=== PATIENT | female | born 1945 | race Caucasian/White ===

== ENCOUNTER 2019-07-21 05:22 | Inpatient (IN) | payer MEDICARE ==
[2019-07-19 11:31] LABS: BASOPHILS % (AUTO) 0.4 % (0-1); EOSINOPHILS # (AUTO) 0.1 X10'3 (0-0.9); LYMPHOCYTES # (AUTO) 2.2 X10'3 (1.1-4.8); LYMPHOCYTES % (AUTO) 30.1 % (21-51); MEAN CORPUSCULAR HEMOGLOBIN 30.4 PG (27.0-31.0); MEAN CORPUSCULAR HGB CONC 33.1 g/dL (33.0-36.5); MEAN CORPUSCULAR VOLUME 91.7 FL (78-98); MEAN PLATELET VOLUME 7.2 FL (7.4-10.4); MONOCYTES # (AUTO) 0.5 X10'3 (0-0.9); MONOCYTES % (AUTO) 6.4 % (2-12); NEUTROPHILS # (AUTO) 4.4 X10'3 (1.8-7.7); NEUTROPHILS % (AUTO) 62.1 % (42-75); PRE OP HEMATOCRIT 42.4 % (35.0-45.0); PRE OP PLATELET COUNT 289 X10'3 (140-440); RED BLOOD COUNT 4.62 X10'6 (4.20-5.60)
[2019-07-19 11:38] LABS: CLARITY,URINE TURBID (Clear); COLOR,URINE YELLOW (Yellow); GLUCOSE, URINE NEGATIVE (Neg); KETONES,URINE TRACE mg/dl (Neg); LEUKOCYTE ESTERASE ,URINE MODERATE (Neg); NITRITES, URINE NEGATIVE (Neg); OCCULT BLOOD,URINE MODERATE (Neg); PH,URINE 5.5 (4.8-8.0); PROTEIN,URINE TRACE mg/dl (Neg); UA COLLECTION TYPE CLN CATCH MIDSTREAM; UROBILINOGEN,URINE 0.2 E.U/dL (0.2-1.0)
[2019-07-19 11:43] LABS: ALBUMIN 3.9 G/DL (3.4-5.0); ALBUMIN/GLOBULIN RATIO 0.9 (1.1-1.5); ALKALINE PHOSPHATASE 87 IU/L (46-116); BLOOD UREA NITROGEN 17 MG/DL (7-18); BUN/CREATININE RATIO 19.8 (6.6-38.0); CALCIUM 9.2 MG/DL (8.5-10.1); CHLORIDE 108 MMOL/L (99-107); CREATININE 0.86 MG/DL (0.40-0.90); PRE OP ALT 20 U/L (30-65); PRE OP ANION GAP 9 (8-16); PRE OP AST 18 U/L (10-37); PRE OP BILIRUB, TOTAL 0.4 MG/DL (0.0-1.0); PRE OP GLUCOSE 91 MG/DL (70-104); PRE OP POTASSIUM 4.1 MMOL/L (3.4-5.1); PRE OP SODIUM 144 MMOL/L (135-145); TOTAL CARBON DIOXIDE 27.2 MMOL/L (24-32); TOTAL PROTEIN 8.4 G/DL (6.4-8.2); eGFR 65 ML/MIN
[2019-07-19 11:48] LABS: BACTERIA,URINE 4+ /HPF (Neg); WBC,URINE 50-100 /HPF (0-4)
[2019-07-19 11:49] LABS: SQUAMOUS EPITHELIAL CELL,UR MODERATE /LPF (FEW); WBC CLUMPS,URINE FEW /HPF (NEGATIVE)
[2019-07-19 11:50] LABS: CAL OXALATE CRYSTALS FEW /HPF (NEGATIVE)
[~2019-07-21] VITALS: Ht 160 cm; Wt 72.0 kg
[2019-07-21] VITALS (17 sets, daily range): BP systolic 107–150; BP diastolic 52–92
[~2019-07-21 05:22] MED LIST: ASCO500C15 PO; MULT-955 PO
[2019-07-21] MEDS ORDERED: famotidine 20mg tablet PO ONE (05:30)
[2019-07-21] MEDS ORDERED: clindamycin-Cleocin 900mg/D5W 50 ML IV ONE (05:30)
[2019-07-21] MEDS ORDERED: gentamicin inj 300 MG in normal saline 100ml IV soln 92.5 ML IV ONE (05:30)
[2019-07-21] MEDS ORDERED: LIDOcaine 1% (10mg/ml) 2ml vial ONE (06:18)
[2019-07-21] MEDS: ringers solution, lacted 1,000 ML IV SCH (06:27)
[2019-07-21] MEDS ORDERED: BUPIVAcaine/PF 2.5 mg/ml (0.25%) 30ml vial ONE (06:53)
[2019-07-21] MEDS ORDERED: aprepitant 40mg capsule PO ONE (07:15)
[2019-07-21] MEDS ORDERED: sevoflurane 250ml liquid IH ONE (07:15)
[2019-07-21] MEDS ORDERED: propofol inj 20 ML IV ONE (07:22)
[2019-07-21] MEDS ORDERED: midazolam 2 mg/2 ml injection ONE (07:22)
[2019-07-21] MEDS ORDERED: rocuronium 10mg/ml inj IV ONE (07:22)
[2019-07-21] MEDS ORDERED: ondansetron/PF 4mg/2ml inj ONE (07:22)
[2019-07-21] MEDS ORDERED: fentaNYL /PF 50mcg/ml 5ml ampule ONE (07:22)
[2019-07-21] MEDS ORDERED: ketorolac trometh. 30mg/ml inj. ONE (07:22)
[2019-07-21] MEDS ORDERED: LIDOcaine 2% (20mg/ml) 5ml vial ONE (07:22)
[2019-07-21] MEDS ORDERED: dexamethasone sod phosphate 4mg/ml inj. ONE (07:22)
[2019-07-21] MEDS ORDERED: ringers solution, lacted 1,000 ML IV SCH (07:57)
[2019-07-21] MEDS ORDERED: morphine 4 MG/ML inj SYRINge IV PRN ×2 (08:00)
[2019-07-21] MEDS ORDERED: ondansetron/PF 4mg/2ml inj IV PRN ×2 (08:00→11:20)
[2019-07-21] MEDS ORDERED: meperidine/PF 25mg/ml syringe IV PRN ×3 (08:00)
[2019-07-21] MEDS ORDERED: proCHLORperazine 10 MG/2 ml inj IV PRN (08:00)
[2019-07-21] MEDS ORDERED: acetaminophen 1,000mg/100ml IV 100 ML IV ONE (10:22)
[2019-07-21] MEDS ORDERED: neostigmine methylsulfate 1 MG/ML 10ml vial ONE (10:44)
[2019-07-21] MEDS ORDERED: glycopyrrolate 0.2mg/ml inj ONE (10:45)
--- NOTE | 2019-07-21 10:50 | NUR ---
Received from OR via surgical bed, accompanied by Anesthesiologist TRIP and report given by Anesthesiolgist. Pt VS stable upon arrival, O2 mask at 10L and sats 100%. Pt responsive to verbal stimuli. Minimal drainage to small horizontal island dressing at lower abdomen, otherwise lap sites with bandaids CDI at this time. Patients states no pain. SCDs in place. 18G IV to right wrist with LR IVF at 100cc/hr. Will continue to monitor closely.
--- NOTE | 2019-07-21 11:39 | NUR ---
Report called to IDA Rosales on surgical floor.
--- NOTE | 2019-07-21 11:50 | NUR ---
Report called to receiving nurse. Transferred via surgical bed. Belongings on bed, at bedside. Special Issues communicated to receiving nurse. Triana catheter draining pink urine, education provided to patient and family re uretal stents. Pt VS remain stable. BLL, call light within reach, abdominal dressings remain CDI minimal drainage to lowest horizontal dressing. Receiving nurse at bedside.
[2019-07-21] MEDS: clindamycin 600mg/D5W 50ml 50 ML IV SCH ×2 (14:13→21:35)
[2019-07-21] MEDS: HYDROcodone/acetaminophen 10/325mg tab PO PRN ×2 (15:52→21:41)
--- NOTE | 2019-07-21 18:48 | NUR ---
Problems reprioritized. Patient report given, questions answered & plan of care reviewed with Prudence RN.
[2019-07-22] VITALS: BP 106/60
[2019-07-22] MEDS: clindamycin 600mg/D5W 50ml 50 ML IV SCH ×2 (03:31→07:16)
[2019-07-22] MEDS: ringers solution, lacted 1,000 ML IV SCH (03:37)
[2019-07-22] MEDS: HYDROcodone/acetaminophen 10/325mg tab PO PRN ×2 (05:48→20:32)
--- NOTE | 2019-07-22 06:25 | NUR ---
Problems reprioritized. Patient report given, questions answered & plan of care reviewed with Italo PRIETO.Patient is resting aand walked [address]
--- NOTE | 2019-07-22 06:30 | NUR ---
Patient in room [facility] 344. I have received report from Melani PRIETO and had the opportunity to ask questions and assume patient care.
[2019-07-22 07:00] VITALS: BP 94/53
--- NOTE | 2019-07-22 07:08 | NUR ---
Patient stated she had passed gas already, positive bowel sounds noted. There was order to advance diet as tolerated, ordered full liquid diet for this patient
[2019-07-22 11:00] VITALS: BP 99/51
[2019-07-22] MEDS ORDERED: ASCO500C15 PO (12:40)
--- NOTE | 2019-07-22 18:34 | NUR ---
Patient in room [facility] 344. I have received report from IDA Puckett and had the opportunity to ask questions and assume patient care.
--- NOTE | 2019-07-22 18:36 | NUR ---
Problems reprioritized. Patient report given, questions answered & plan of care reviewed with Donald PRIETO.
[2019-07-22 19:00] VITALS: BP 121/64
[2019-07-23] VITALS: BP 140/63
[2019-07-23] MEDS: HYDROcodone/acetaminophen 10/325mg tab PO PRN ×4 (00:42→09:38)
--- NOTE | 2019-07-23 06:38 | NUR ---
Problems reprioritized. Patient report given, questions answered & plan of care reviewed with IDA Cooley.
--- NOTE | 2019-07-23 06:42 | NUR ---
Patient in room [facility] 344. I have received report from Donald PRIETO and had the opportunity to ask questions and assume patient care. Patient resting eyes closed respirations even, will continue to monitor.
[2019-07-23 07:00] VITALS: BP 119/86
[2019-07-23] MEDS: multivitamins, therapeutics tablet PO SCH (09:26)
[2019-07-23] MEDS: ascorbic acid 500mg tablet PO SCH (09:26)
[2019-07-23 11:00] VITALS: BP 124/60
[2019-07-23] MEDS: HYDROcodone/acetaminophen 5mg/325mg tablet PO PRN (17:36)
--- NOTE | 2019-07-23 18:48 | NUR ---
Patient in room [facility] 344. I have received report from Edith PRIETO and had the opportunity to ask questions and assume patient care. patient is eating dinner with her in the room.
--- NOTE | 2019-07-23 18:53 | NUR ---
Problems reprioritized. Patient report given, questions answered & plan of care reviewed with Prudence RN.
[2019-07-23 19:00] VITALS: BP 139/74
[2019-07-24] VITALS: BP 127/62
[2019-07-24] MEDS: HYDROcodone/acetaminophen 5mg/325mg tablet PO PRN ×2 (02:10→08:24)
--- NOTE | 2019-07-24 06:40 | NUR ---
Patient in room [facility] 344. I have received report from Melani PRIETO and had the opportunity to ask questions and assume patient care.
[2019-07-24 07:00] VITALS: BP 136/74
[2019-07-24] MEDS: multivitamins, therapeutics tablet PO SCH (08:23)
[2019-07-24] MEDS: ascorbic acid 500mg tablet PO SCH (08:23)
[2019-07-24 12:15] VITALS: BP 135/57
[2019-07-24 13:08] LABS: BASOPHILS % (AUTO) 0.2 % (0-1); EOSINOPHILS # (AUTO) 0.2 X10'3 (0-0.9); EOSINOPHILS % (AUTO) 1.9 % (0-6); HEMATOCRIT 32.8 % (35.0-45.0); HEMOGLOBIN 11.1 g/dl (12.0-16.0); LYMPHOCYTES # (AUTO) 2.2 X10'3 (1.1-4.8); LYMPHOCYTES % (AUTO) 23.4 % (21-51); MEAN CORPUSCULAR HEMOGLOBIN 30.8 PG (27.0-31.0); MEAN CORPUSCULAR HGB CONC 33.8 g/dL (33.0-36.5); MEAN CORPUSCULAR VOLUME 90.9 FL (78-98); MEAN PLATELET VOLUME 7.5 FL (7.4-10.4); MONOCYTES # (AUTO) 0.6 X10'3 (0-0.9); NEUTROPHILS # (AUTO) 6.5 X10'3 (1.8-7.7); NEUTROPHILS % (AUTO) 68.5 % (42-75); PLATELET COUNT 231 X10'3 (140-440); RED CELL DISTRIBUTION WIDTH 14.7 % (11.5-14.5); WHITE BLOOD COUNT 9.6 X10'3 (4.5-11.0)
--- NOTE | 2019-07-24 17:06 | NUR ---
Pt discharged, pt is A&O, IV cath was removed- cath intact. Pt and spouse expressed understanding of all discharge instructions. Pt was also discharge from surgical with a folley catheter in place per Dr Mckeon orders. Pt will be going to Dr. Mckeon on Friday to DC her folley. Pt send home with a leg bag and was instructed on folley cath care. Pt verbalized understanding.
== END 2019-07-24 16:35 | disposition home or self-care (01) | DRG 330 ==
LOC: PAS IN 05:22 → EDSTATUS 07:30 → SUR 3N 11:19 → UNDODISIN 07-24 13:00
PROVIDERS: ADMIT Surgery; ATTEND Surgery
PROC: 0TB74ZZ Excision of Left Ureter, Percutaneous Endoscopic Approach (ICD-10-PCS; 2019-07-21)
PROC: 0TQ74ZZ Repair Left Ureter, Percutaneous Endoscopic Approach (ICD-10-PCS; 2019-07-21)
PROC: 0DBN4ZZ Excision of Sigmoid Colon, Percutaneous Endoscopic Approach (ICD-10-PCS; 2019-07-21)
PROC: 0TN74ZZ Release Left Ureter, Percutaneous Endoscopic Approach (ICD-10-PCS; 2019-07-21)
PROC: 0T9880Z Drainage of Bilateral Ureters with Drainage Device, Via Natural or Artificial Opening Endoscopic (ICD-10-PCS; 2019-07-21)
PROC: BT141ZZ Fluoroscopy of Kidneys, Ureters and Bladder using Low Osmolar Contrast (ICD-10-PCS; 2019-07-21)
PROC: 0T9B80Z Drainage of Bladder with Drainage Device, Via Natural or Artificial Opening Endoscopic (ICD-10-PCS; 2019-07-21)
PROC: 0T777DZ Dilation of Left Ureter with Intraluminal Device, Via Natural or Artificial Opening (ICD-10-PCS; 2019-07-21)
PROC: 0TQB4ZZ Repair Bladder, Percutaneous Endoscopic Approach (ICD-10-PCS; principal; 2019-07-21 07:15)
PROC: 0UQG4ZZ Repair Vagina, Percutaneous Endoscopic Approach (ICD-10-PCS; 2019-07-21 07:15)
DX: N82.3 Fistula of vagina to large intestine (principal); S37.10XA Unspecified injury of ureter, initial encounter; K57.30 Diverticulosis of large intestine without perforation or abscess without bleeding; X58.XXXA Exposure to other specified factors, initial encounter; Z88.0 Allergy status to penicillin; Z88.2 Allergy status to sulfonamides; Z90.710 Acquired absence of both cervix and uterus; Z98.49 Cataract extraction status, unspecified eye; Z82.5 Family history of asthma and other chronic lower respiratory diseases; Y93.89 Activity, other specified; Y92.89 Other specified places as the place of occurrence of the external cause; Y99.8 Other external cause status
CPT/HCPCS: 36415; 76000; 80053; 81001; 82948; 85025; 86885; 86900; 86901; 86920; 87081; 87088; 88307; 93005; A4215; A4355; A4618; A7000; C1758; C1769; C2617; G0378; J0131; J1100; J1580; J1885; J2001; J2250; J2405; J2704; J2710; J3010; J3490; J7120; J8501

== ENCOUNTER 2019-08-02 10:15 | Emergency (ER) | payer MEDICARE ==
[~2019-08-02] VITALS: Ht 160 cm; Wt 70.5 kg
[2019-08-02 10:38] VITALS: BP 144/89
[2019-08-02] MEDS ORDERED: dexamethasone sod phosphate 10mg/ml inj PO STA (11:33)
[2019-08-02] MEDS ORDERED: PRED20TA PO (11:35)
== END 2019-08-02 12:05 | disposition home or self-care (01) ==
LOC: ER 10:16
DX: L50.8 Other urticaria (principal); Z79.899 Other long term (current) drug therapy; Z88.0 Allergy status to penicillin; Z88.2 Allergy status to sulfonamides
CPT/HCPCS: 99283; J1100

== ENCOUNTER 2021-05-01 07:24 | Day surgery (SDC) | payer MEDICARE ==
[2021-04-25 12:05] LABS: BASOPHILS % (AUTO) 0.6 % (0-1); EOSINOPHILS # (AUTO) 0.1 X10'3 (0-0.9); EOSINOPHILS % (AUTO) 1.3 % (0-6); LYMPHOCYTES # (AUTO) 2.1 X10'3 (1.1-4.8); LYMPHOCYTES % (AUTO) 28.5 % (21-51); MEAN CORPUSCULAR HEMOGLOBIN 31.4 PG (27.0-31.0); MEAN CORPUSCULAR HGB CONC 33.4 g/dL (33.0-36.5); MEAN CORPUSCULAR VOLUME 94.1 FL (78-98); MEAN PLATELET VOLUME 7.4 FL (7.4-10.4); MONOCYTES # (AUTO) 0.4 X10'3 (0-0.9); MONOCYTES % (AUTO) 5.8 % (2-12); NEUTROPHILS # (AUTO) 4.8 X10'3 (1.8-7.7); NEUTROPHILS % (AUTO) 63.8 % (42-75); PRE OP HEMATOCRIT 43.2 % (35.0-45.0); PRE OP HEMOGLOBIN 14.4 g/dL (12.0-16.0); PRE OP PLATELET COUNT 291 X10'3 (140-440); RED BLOOD COUNT 4.59 X10'6 (4.20-5.60); RED CELL DISTRIBUTION WIDTH 13.3 % (11.5-14.5)
[2021-04-25 12:24] LABS: ALBUMIN 4.3 G/DL (3.4-5.0); ALBUMIN/GLOBULIN RATIO 1.1 (1.1-1.5); ALKALINE PHOSPHATASE 100 IU/L (46-116); BLOOD UREA NITROGEN 26 MG/DL (7-18); BUN/CREATININE RATIO 26.5 (6.6-38.0); CHLORIDE 107 MMOL/L (99-107); CREATININE 0.98 MG/DL (0.40-0.90); PRE OP ALT 23 U/L (30-65); PRE OP ANION GAP 11 (8-16); PRE OP AST 16 U/L (10-37); PRE OP BILIRUB, TOTAL 0.4 MG/DL (0.0-1.0); PRE OP GLUCOSE 103 MG/DL (70-104); PRE OP POTASSIUM 4.1 MMOL/L (3.4-5.1); PRE OP SODIUM 142 MMOL/L (135-145); TOTAL CARBON DIOXIDE 24.1 MMOL/L (24-32); TOTAL PROTEIN 8.2 G/DL (6.4-8.2); eGFR 55 ML/MIN
[2021-05-01] VITALS (17 sets, daily range): BP systolic 98–165; BP diastolic 50–83
[~2021-05-01] VITALS: Ht 160 cm; Wt 80.8 kg
[2021-05-01] MEDS: potassium cl 20mEq in 1/2 NS 1,000 ML IV SCH ×3 (07:00→17:18)
[~2021-05-01 07:24] MED LIST changes: -ASCO500C15 PO; +ASCO500C18 PO; +ASPI-1397 PO; +ATOR20TA66 PO; +CALC1CAP21 PO; +CHOL400T8 PO; +CYAN250010 PO; +HYDROcodone/acetaminophen 10/325mg tab PO PRN; +HYDROmorphone 1 mg/ml syringe IV PRN; +HYDROmorphone inj. 0.5 MG/0.5 ML DISP.SYRIN IV PRN; +IBUP-1985 PO; +acetaminophen 325mg tablet PO ONE; +acetaminophen 325mg tablet PO PRN; +bisacodyl 10mg suppository rectal RC PRN; +cefazolin/dext.iso 2gm/100ml IV ONE; +celeCOXIB 100mg capsule PO ONE; +diphenhydrAMINE 25mg capsule PO PRN; +famotidine 20mg tablet PO ONE; +gabapentin 300mg capsule PO ONE; +magnesium hydroxide 30ml (MOM) UD suspension PO PRN; +metoclopramide 5 mg/ml inj IV ONE; +ondansetron/PF 4mg/2ml inj IV PRN; +oxyCODONE SR 10mg (sust. release) tab -2 tabs (20mg) PO ONE; +ringers solution, lacted 1,000 ML IV SCH; +tranexamic acid 1gm/0.7% sal. 100 ML IV ONE; +vancomycin 1,500 MG in NS 300ml IV soln IV ONE
[2021-05-01] MEDS: gabapentin 300mg capsule PO SCH ×3 (08:00→21:01)
[2021-05-01] MEDS ORDERED: atorvastatin 20mg tablet PO SCH (08:00)
[2021-05-01] MEDS: multivitamins, therapeutics tablet PO SCH ×2 (08:00→21:01)
[2021-05-01] MEDS ORDERED: scopolamine 1mg/72 hr patch TD ONE (10:35)
[2021-05-01] MEDS ORDERED: cloNIDine hcl/PF 100mcg/ml inj ONE (10:47)
[2021-05-01] MEDS ORDERED: epiNEPHrine 1 mg/ml inj ONE (10:47)
[2021-05-01] MEDS ORDERED: ROPIVAcaine 0.5% (5mg/ml) 30ml vial ONE (10:48)
[2021-05-01] MEDS ORDERED: vancomycin 1,000mg inj ONE (10:48)
[2021-05-01] MEDS ORDERED: fentaNYL/PF 50MCG/1 ML 2ML syringe ONE (10:54)
[2021-05-01] MEDS ORDERED: proCHLORperazine 10 MG/2 ml inj IV PRN (11:35)
[2021-05-01] MEDS ORDERED: morphine 4 MG/ML inj SYRINge IV PRN (11:35)
[2021-05-01] MEDS ORDERED: meperidine/PF 25mg/ml syringe IV PRN ×3 (11:35)
[2021-05-01] MEDS ORDERED: morphine 2 MG/ML inj. syringe IV PRN (11:35)
[2021-05-01] MEDS ORDERED: ringers solution, lacted 1,000 ML IV SCH (11:35)
[2021-05-01] MEDS ORDERED: hydrALAZINE 20mg/ml inj. IV PRN (11:35)
[2021-05-01] MEDS ORDERED: labetalol 20mg/4ml (5mg/ml) syringe IV PRN (11:35)
[2021-05-01] MEDS ORDERED: ondansetron/PF 4mg/2ml inj IV PRN (11:35)
[2021-05-01] MEDS ORDERED: acetaminophen 1,000mg/100ml IV 100 ML IV PRN (11:35)
[2021-05-01] MEDS ORDERED: ketorolac trometh. 30mg/ml inj. ONE (11:40)
[2021-05-01] MEDS ORDERED: midazolam 1 mg/ML 2ml injection ONE (11:40)
[2021-05-01] MEDS ORDERED: ePHEDrine 50MG/ML INJ. ONE (11:41)
[2021-05-01] MEDS ORDERED: propofol inj 20 ML IV ONE ×2 (11:46)
--- NOTE | 2021-05-01 12:25 | NUR ---
ADMITTED TO PACU FROM OR ACCOMPANIED BY ANESTHESIA. INTIAL PHYSICAL ASSESSMENT DONE AND RECORDED. REPORT RECEIVED FROM ANESTHESIA.
--- NOTE | 2021-05-01 13:30 | NUR ---
Received pt from recovery via bed. Report received from Jonelle Brody RN. PT a&o denies pain. remains with no sensation from calf down. Post op VS stable. Call light in reach. Pt oriented to POC.
--- NOTE | 2021-05-01 14:00 | NUR ---
PACU DISCHARGE CRITERIA MET, REPORT GIVEN TO FLOOR. DENIES PAIN OR DISCOMFORT. PT IS STABLE AND ADEQUATELY RECOVERED FROM ANESTHESIA. PT HAS STABLE AIRWAY PATENCY, RESPIRATORY FUNCTION TO INCLUDE RESPIRATORY RATE AND O2 SAT. HEART RATE, BLOOD PRESSURE STABLE AND HYDRATION ADEQUATE. MENTAL STATUS IS APPROPRIATE. PAIN AND NAUSEA CONTROLLED. REFER TO PACU SPREADSHEET FOR VITAL SIGNS.
[2021-05-01] MEDS ORDERED: tranexamic acid 1gm/0.7% sal. 100 ML IV ONE (16:00)
[2021-05-01] MEDS: HYDROcodone/acetaminophen 10/325mg tab PO PRN ×2 (16:21→21:01)
[2021-05-01] MEDS: cefazolin/dext.iso 2gm/100ml 100 ML IV SCH (17:15)
[2021-05-01] MEDS: aspirin 325mg tablet PO SCH (18:00)
--- NOTE | 2021-05-01 18:09 | NUR ---
Problems reprioritized. Patient report given, questions answered & plan of care reviewed with IDA Benavidez.
--- NOTE | 2021-05-01 19:29 | NUR ---
dr. jerry stated in his operation report that aspirin to start 12 hours after surgery. will start in am.
[2021-05-01] MEDS ORDERED: sennosides 8.6mg tablet PO SCH (21:00)
[2021-05-01] MEDS: atorvastatin 20mg tablet PO SCH (21:01)
[2021-05-01] MEDS: ascorbic acid 500mg tablet PO SCH (21:01)
[2021-05-01] MEDS ORDERED: VANCOMYCIN 1,500MG inj. 1,500 MG in normal saline 500ml IV soln 500 ML IV SCH (22:00)
[2021-05-02] MEDS: HYDROcodone/acetaminophen 10/325mg tab PO PRN ×2 (01:41→05:50)
[2021-05-02] MEDS: cefazolin/dext.iso 2gm/100ml 100 ML IV SCH (01:42)
[2021-05-02 02:00] VITALS: BP 126/59
[2021-05-02 06:03] LABS: BASOPHILS % (AUTO) 0.2 % (0-1); EOSINOPHILS # (AUTO) 0.1 X10'3 (0-0.9); EOSINOPHILS % (AUTO) 1.3 % (0-6); HEMATOCRIT 32.3 % (35.0-45.0); HEMOGLOBIN 10.8 g/dl (12.0-16.0); LYMPHOCYTES # (AUTO) 1.6 X10'3 (1.1-4.8); LYMPHOCYTES % (AUTO) 23.6 % (21-51); MEAN CORPUSCULAR HEMOGLOBIN 31.8 PG (27.0-31.0); MEAN CORPUSCULAR HGB CONC 33.5 g/dL (33.0-36.5); MEAN CORPUSCULAR VOLUME 94.8 FL (78-98); MEAN PLATELET VOLUME 7.2 FL (7.4-10.4); MONOCYTES # (AUTO) 0.6 X10'3 (0-0.9); MONOCYTES % (AUTO) 8.3 % (2-12); NEUTROPHILS # (AUTO) 4.6 X10'3 (1.8-7.7); NEUTROPHILS % (AUTO) 66.6 % (42-75); PLATELET COUNT 200 X10'3 (140-440); RED CELL DISTRIBUTION WIDTH 12.9 % (11.5-14.5); WHITE BLOOD COUNT 6.9 X10'3 (4.5-11.0)
--- NOTE | 2021-05-02 06:23 | NUR ---
Patient in room [facility] 4024. I have received report from Kayleen PRIETO and had the opportunity to ask questions and assume patient care.
[2021-05-02 06:24] LABS: ANION GAP 9 (8-16); CHLORIDE 107 MMOL/L (99-107); POTASSIUM 3.5 MMOL/L (3.5-5.1); SODIUM 141 MMOL/L (135-145); TOTAL CARBON DIOXIDE 25.5 MMOL/L (24-32)
--- NOTE | 2021-05-02 06:32 | NUR ---
reported to days. noted pt has help at home. anticipate discharge today. 1 tab norco holding pain.
[2021-05-02 06:59] VITALS: BP 112/51
[2021-05-02] MEDS: potassium cl 20mEq in 1/2 NS 1,000 ML IV SCH (07:00)
[2021-05-02] MEDS: aspirin 325mg tablet PO SCH (08:30)
[2021-05-02] MEDS: ascorbic acid 500mg tablet PO SCH (08:31)
[2021-05-02] MEDS: atorvastatin 20mg tablet PO SCH (08:31)
[2021-05-02] MEDS: gabapentin 300mg capsule PO SCH (08:31)
[2021-05-02 10:50] VITALS: BP 132/60
--- NOTE | 2021-05-02 11:49 | NUR ---
Pt was discharged with daughter, all post op care instructions were gone over in the discharge paper work. The pt had all their belongings with them on time of discharge, pt was taken by wheelchair to the lobby where they left in a private vehicle.
[2021-05-02] MEDS ORDERED: celeCOXIB 100mg capsule PO SCH (20:00)
== END 2021-05-02 11:30 | disposition home or self-care (01) ==
LOC: PAS 07:24 → ORTHO 4S 07:25 → PAS 05-02 11:30
PROVIDERS: ATTEND Orthopaedic Surgery
DX: M16.12 Unilateral primary osteoarthritis, left hip (principal); F41.9 Anxiety disorder, unspecified; Z88.0 Allergy status to penicillin; Z88.2 Allergy status to sulfonamides; Z79.899 Other long term (current) drug therapy; Z90.49 Acquired absence of other specified parts of digestive tract; Z90.710 Acquired absence of both cervix and uterus; Z98.890 Other specified postprocedural states; Z79.82 Long term (current) use of aspirin
CPT/HCPCS: 27130; 36415; 72170; 80051; 80053; 82948; 85025; 86885; 86900; 86901; 87081; 97110; 97116; 97161; 97530; C1776; J0171; J0735; J1885; J2250; J2405; J2704; J2765; J3010; J3370; J7040; J7120; A7000; G0378; J2795; J3480

== ENCOUNTER 2023-05-31 02:45 | Emergency (ER) | payer MEDICARE ==
[~2023-05-31] VITALS: Ht 161.3 cm; Wt 84.8 kg
[~2023-05-31 02:45] MED LIST changes: -HYDROcodone/acetaminophen 10/325mg tab PO PRN; -HYDROmorphone 1 mg/ml syringe IV PRN; -HYDROmorphone inj. 0.5 MG/0.5 ML DISP.SYRIN IV PRN; -IBUP-1985 PO; -acetaminophen 325mg tablet PO ONE; -acetaminophen 325mg tablet PO PRN; -bisacodyl 10mg suppository rectal RC PRN; -cefazolin/dext.iso 2gm/100ml IV ONE; -celeCOXIB 100mg capsule PO ONE; -diphenhydrAMINE 25mg capsule PO PRN; -famotidine 20mg tablet PO ONE; -gabapentin 300mg capsule PO ONE; -magnesium hydroxide 30ml (MOM) UD suspension PO PRN; -metoclopramide 5 mg/ml inj IV ONE; -ondansetron/PF 4mg/2ml inj IV PRN; -oxyCODONE SR 10mg (sust. release) tab -2 tabs (20mg) PO ONE; -ringers solution, lacted 1,000 ML IV SCH; -tranexamic acid 1gm/0.7% sal. 100 ML IV ONE; -vancomycin 1,500 MG in NS 300ml IV soln IV ONE
[2023-05-31 02:49] VITALS: BP 187/99; PULSE 100; RESP 18; TEMP 98.5; O2SAT 97
== END 2023-05-31 04:06 | disposition home or self-care (01) ==
LOC: ER 02:45
DX: S93.115A Dislocation of interphalangeal joint of left lesser toe(s), initial encounter (principal); Z88.0 Allergy status to penicillin; Z88.2 Allergy status to sulfonamides; Z79.82 Long term (current) use of aspirin; Z79.899 Other long term (current) drug therapy; X58.XXXA Exposure to other specified factors, initial encounter; Y93.89 Activity, other specified; Y92.89 Other specified places as the place of occurrence of the external cause; Y99.8 Other external cause status
CPT/HCPCS: 28515; 73660; 99284